=== PATIENT | male | born 1955 | race Caucasian/White ===

== ENCOUNTER 2020-11-09 04:55 | Emergency (ER) | payer OTHER, MEDICARE ==
[~2020-11-09] VITALS: Ht 182.9 cm; Wt 121.9 kg
[2020-11-09] MEDS ORDERED: methylPREDNISolone 125MG 2ML VIAL IV ONE (05:20)
[2020-11-09 05:29] LABS: BASO # 0.1 10^3/uL (0.0-0.2); EOS # 0.9 10^3/uL (0.0-0.5); EOS % 10.7 % (0.0-3.0); HEMATOCRIT 51.5 % (42.0-52.0); HEMOGLOBIN 15.6 g/dl (13.5-17.5); LYMPH # 1.5 10^3/uL (1.5-5.0); LYMPH % 17.2 % (24.0-44.0); MEAN CORPUSCULAR HEMOGLOBIN 30.2 pg (27.0-33.0); MEAN CORPUSCULAR HGB CONC 30.3 g/dl (32.0-36.5); MEAN CORPUSCULAR VOLUME 99.8 fl (80.0-96.0); MONO # 0.8 10^3/uL (0.0-0.8); MONO % 9.2 % (2.0-8.0); NEUTROPHILS # 5.2 10^3/uL (1.5-8.5); NEUTROPHILS % 61.8 % (36.0-66.0); PLATELET COUNT, AUTOMATED 257 10^3/uL (150-450); RED BLOOD COUNT 5.16 10^6/uL (4.30-6.10); WHITE BLOOD COUNT 8.4 10^3/uL (4.0-10.0)
--- NOTE | 2020-11-09 05:40 | ECGEPIP ---
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
[2020-11-09 05:57] LABS: ALBUMIN 3.4 GM/DL (3.2-5.2); ALT/SGPT 24 U/L (12-78); BILIRUBIN,DIRECT 0.2 MG/DL (0.0-0.2); BILIRUBIN,TOTAL 0.5 MG/DL (0.2-1.0); BLOOD UREA NITROGEN 18 MG/DL (7-18); CALCIUM LEVEL 8.9 MG/DL (8.8-10.2); CARBON DIOXIDE LEVEL 29 MEQ/L (21-32); CHLORIDE LEVEL 107 MEQ/L (98-107); CREATININE FOR GFR 1.08 MG/DL (0.70-1.30); GLOMERULAR FILTRATION RATE > 60.0 (>49); GLUCOSE, FASTING 160 MG/DL (70-100); POTASSIUM SERUM 4.7 MEQ/L (3.5-5.1); SODIUM LEVEL 141 MEQ/L (136-145); TOTAL PROTEIN 6.9 GM/DL (6.4-8.2)
[2020-11-09 06:04] LABS: INR 1.05; PARTIAL THROMBOPLASTIN TIME 31.9 SECONDS (25.9-37.0); PROTHROMBIN TIME 14.1 SECONDS (12.7-14.5)
--- NOTE | 2020-11-09 06:06 | REPVR ---
PROCEDURE INFORMATION: Exam: XR Chest Exam date and time: 11/09/2020 5:30 AM Age: 65 years old Clinical indication: Cough; Additional info: Dyspnea/cough TECHNIQUE: Imaging protocol: XR of the chest. Views: 1 view. COMPARISON: No relevant prior studies available. FINDINGS: Lungs: There is left lung prominent interstitial markings. There is medial right lower lung zone atelectatic changes versus infiltrates. Pleural spaces: Unremarkable. No pleural effusion. No pneumothorax. Heart/Mediastinum: The heart is enlarged. Bones/joints: Unremarkable. IMPRESSION: 1. Nonspecific mild left lung interstitial lung process and medial right lower lung zone atelectatic changes. 2. Cardiomegaly . Electronically signed by: Gabriel Davalos On 11/09/2020 06:05:39 AM
[2020-11-09] MEDS ORDERED: PRAV40TA2 PO (06:21)
[2020-11-09] MEDS ORDERED: AMBI10TA PO (06:21)
[2020-11-09] MEDS ORDERED: LISI-898 PO (06:21)
[2020-11-09] MEDS ORDERED: PANT40TA29 PO (06:21)
[2020-11-09] MEDS ORDERED: CYCL-707 PO (06:21)
[2020-11-09] MEDS ORDERED: EZET10TA21 PO (06:21)
[2020-11-09] MEDS ORDERED: NORV5TAB PO (06:21)
[2020-11-09] MEDS ORDERED: METO1TAB7 PO (06:21)
[2020-11-09] MEDS ORDERED: INVO300T PO (06:21)
[2020-11-09] MEDS ORDERED: METF10004 PO (06:21)
[2020-11-09] MEDS ORDERED: ISOVUE-370 76% 100ML VIAL As Ordered ONE (06:49)
--- NOTE | 2020-11-09 08:15 | REPVR ---
PROCEDURE INFORMATION: Exam: CTA Chest With Contrast Exam date and time: 11/09/2020 7:52 AM Age: 65 years old Clinical indication: Pain; Chest pressure; Additional info: SOB, chest pain TECHNIQUE: Imaging protocol: Computed tomographic angiography of the chest with contrast. 3D rendering (Not supervised by radiologist): MIP and/or 3D reconstructed images were created by the technologist. Radiation optimization: All CT scans at this facility use at least one of these dose optimization techniques: automated exposure control; mA and/or kV adjustment per patient size (includes targeted exams where dose is matched to clinical indication); or iterative reconstruction. Contrast material: ISO 370; Contrast volume: 75 ml; Contrast route: INTRAVENOUS (IV); COMPARISON: CR PORTABLE CHEST X-RAY 11/09/2020 5:05 AM FINDINGS: Pulmonary arteries: Dilated pulmonary trunk is seen measuring 4.2 centimetres. Aorta: Noncalcified atheromatous disease seen in the thoracic aorta resulting in minimal luminal narrowing. The ascending aorta is dilated measuring up to 4.5 centimetres. Lungs: There are bilateral chronic interstitial lung changes with peripheral sub pleural prominent interlobular septae a with multiple tiny peripheral cysts. Volume loss is seen in the lower lobes with linear atelectases versus scar. There is 6-7 mm right lower lobe pleural base nodule on axial image 111 series 401. Pleural spaces: Unremarkable. No pneumothorax. No pleural effusion. Heart: Unremarkable. No cardiomegaly. No pericardial effusion. Lymph nodes: Multiple enlarged right hilar lymph nodes are seen measuring up to 3.2 x 2.3 centimetres. Multiple smaller left hilar and mediastinal lymph nodes are seen measuring up to 1.9 cm. Calcified subcarinal lymph nodes seen measuring 1.9 centimetres. Right hilar calcified lymph nodes are seen. Liver: The liver is markedly enlarged, heterogeneous and hypoattenuated containing numerous calcified granulomas. Spleen: Numerous splenic calcified granulomas are seen. Kidneys and ureters: There is 3.8 cm left upper renal pole cyst. There is partially imaged 4.6 cm right renal cyst. Bones/joints: Unremarkable. No acute fracture. Soft tissues: Unremarkable. IMPRESSION: 1. No CT evidence of pulmonary embolism or right heart strain. 2. Dilated pulmonary trunk at 4.2 cm suggestive of pulmonary hypertension. 3. Fusiform aneurysmal dilatation of the ascending aorta at 4.5 cm 4. Mediastinal and hilar adenopathy most pronounced in the right hilum with lymph nodes measuring up to 3.2 x 2.3 cm with some of the lymph nodes in the right hilum and subcarinal space are calcified. These are likely the sequela of granulomatous infectious/inflammatory process however given the size of the lymph nodes follow-up is recommended to exclude underlying neoplastic etiology/lymphoproliferative disorder. 5. Chronic interstitial and parenchymal lung changes with mild volume loss and scarring in the lower lobes and small peripheral sub pleural tiny cysts. 6. 6-7 mm right lower lobe pleural base nodule. - For patients at low risk (minimal or absent history of smoking and of other known risk factors), recommend CT Chest at 6-12 months, then consider CT Chest at 18-24 months. - For patients at high risk (history of smoking or of other known risk factors), recommend CT Chest at 6-12 months, then CT Chest at 18-24 months. (Reference: Kylah) 7. Hepatomegaly with numerous calcified hepatic and splenic granulomas. COMMENTS: Consistent with the [employer]'s Incidental Findings Committee white paper (J Am Carmen Radiol 2018): Any incidental renal lesion less than 1 cm or classified as too small to characterize, or any incidental cystic renal lesion characterized as simple-appearing, is likely benign. No follow-up imaging is recommended for these lesions per consensus recommendations based on imaging criteria. REFERENCES: Kylah Zamora, et al. Guidelines for Management of Incidental Pulmonary Nodules Detected on CT Images: From the [employer] 2017. Radiology. 2017;284(1):228-243. Electronically signed by: Gabriel Davalos On 11/09/2020 08:15:10 AM
[2020-11-09] MEDS: COMBIVENT RESPIMAT 100-20MCG INHALER 4GM INH SCH ×3 (09:16→10:23)
[2020-11-09] MEDS ORDERED: FUROSEMIDE 100MG/10ML VIAL (J1940) IV ONE (09:35)
[2020-11-09 10:00] VITALS: BP 129/84
== END 2020-11-09 11:48 | disposition left against medical advice (07) ==
LOC: M ED 04:55
DX: Z53.9 Procedure and treatment not carried out, unspecified reason (principal); I21.4 Non-ST elevation (NSTEMI) myocardial infarction; J96.91 Respiratory failure, unspecified with hypoxia; J96.92 Respiratory failure, unspecified with hypercapnia; I50.31 Acute diastolic (congestive) heart failure; R91.1 Solitary pulmonary nodule; R16.0 Hepatomegaly, not elsewhere classified; K75.3 Granulomatous hepatitis, not elsewhere classified; D73.89 Other diseases of spleen; I51.7 Cardiomegaly; Z79.899 Other long term (current) drug therapy
CPT/HCPCS: 36600; 71045; 71275; 80048; 80076; 82803; 83605; 84484; 85025; 85610; 85730; 87040; 87798; 93005; 93041; 94640; 94660; 94664; 96374; 96375; 99285; J1940; J2930; Q9967